=== PATIENT | female | born 1995 | race Caucasian/White ===

== ENCOUNTER 2017-10-11 16:16 | Emergency (ER) | payer SELFPAY | END 2017-10-11 19:25 | disposition home or self-care (01) | LOC: D.ER 16:16 | DX: J02.9 Acute pharyngitis, unspecified (principal) ==

== ENCOUNTER 2017-12-07 11:39 | Emergency (ER) | payer SELFPAY ==
[2017-12-07 12:24] LABS: BASOPHILS 0.1 % (0-2); EOSINOPHILS 0.7 % (0-7); HEMATOCRIT 39.8 % (36.0-48.0); HEMOGLOBIN 13.5 g/dL (12-16); IMMATURE GRANULOCYTES 0.2 % (0-5); LYMPHOCYTES 17.5 % (15-50); MCH 29.9 pg (26.0-34.0); MCHC 33.9 g/dL (31.0-37.0); MCV 88.1 fL (80.0-100.0); MEAN PLATELET VOLUME 9.2 fL (7.4-10.4); MONOCYTES 5.4 % (2-11); NEUTROPHILS 76.1 % (40-80); PLATELET COUNT 327 10x3/uL (130-400); RBC 4.52 10x6/uL (4.00-5.40); RDW 12.5 % (11.5-14.5); WBC 10.7 10x3/uL (4.8-10.8)
[2017-12-07 12:31] LABS: HCG SERUM NEGATIVE (NEGATIVE)
== END 2017-12-07 14:01 | disposition home or self-care (01) ==
LOC: D.ER 11:39
PROVIDERS: Emergency Medicine
DX: R51 Headache (principal); S00.83XA Contusion of other part of head, initial encounter; Y04.2XXA Assault by strike against or bumped into by another person, initial encounter; Y93.89 Activity, other specified; Y92.019 Unspecified place in single-family (private) house as the place of occurrence of the external cause; M54.2 Cervicalgia; F17.200 Nicotine dependence, unspecified, uncomplicated

== ENCOUNTER 2018-06-05 17:30 | Emergency (ER) | payer SELFPAY ==
[~2018-06-05] VITALS: Ht 180.3 cm; Wt 90.9 kg
[2018-06-05 17:34] VITALS: Ht 180.3 cm; Wt 90.9 kg
[2018-06-05] MEDS ORDERED: ROBAXIN500 MG PO (18:51)
[2018-06-05 18:59] VITALS: BP 143/63
== END 2018-06-05 19:00 | disposition home or self-care (01) ==
LOC: D.ER 17:30
DX: S16.1XXA Strain of muscle, fascia and tendon at neck level, initial encounter (principal); W16.42XA Fall into unspecified water causing other injury, initial encounter; Y93.89 Activity, other specified; Y92.828 Other wilderness area as the place of occurrence of the external cause; S00.93XA Contusion of unspecified part of head, initial encounter; F17.200 Nicotine dependence, unspecified, uncomplicated

== ENCOUNTER 2018-10-18 22:38 | Emergency (ER) | payer SELFPAY ==
[~2018-10-18] VITALS: Ht 180.3 cm; Wt 95.5 kg
[~2018-10-18 22:38] MED LIST: ROBAXIN500 MG PO
[2018-10-18 22:53] VITALS: Ht 180.3 cm; Wt 95.5 kg
[2018-10-19] MEDS ORDERED: TORADOL10 MG PO (00:27)
[2018-10-19] MEDS ORDERED: CLEOCIN HCL300 MG PO (00:27)
[2018-10-19 00:41] VITALS: BP 121/82
== END 2018-10-19 00:54 | disposition home or self-care (01) ==
LOC: D.ER 22:38
DX: L02.214 Cutaneous abscess of groin (principal)